=== PATIENT | male | born 1955 | race Caucasian/White ===

== ENCOUNTER 2016-09-19 18:13 | Inpatient (IN) ==
[2016-09-19] MEDS ORDERED: Pantoprazole 40 MG VIAL IVP ONE (18:15)
[2016-09-19 18:37] LABS: Basophils % 0.6 %; Eosinophils # 0.3 K/mcL (0.0-0.6); Eosinophils % 5.9 %; Hematocrit 25.2 % (37.5-50.1); Hemoglobin 8.2 g/dL (12.9-16.9); Immature Granulocytes % 4.4 % (0-4); Immature Platelets 25.2 % (1.1-6.1); Lymphocytes # 2.2 K/mcL (0.6-4.6); Lymphocytes % 47.3 %; Mean Corpuscular HGB Conc 32.5 g/dL (31.6-35.5); Mean Corpuscular Hemoglobin 31.8 pg (28.0-33.3); Mean Corpuscular Volume 97.7 fL (83.0-100.0); Monocytes # 0.5 K/mcL (0.0-1.3); Monocytes % 10.5 %; Neutrophils # 1.5 K/mcL (1.6-8.9); Nucleated Red Blood Cells 1.5 /100 WBC (0); Platelet Count 132 K/mcL (140-400); Red Blood Count 2.58 M/mcL (4.19-5.50); Red Cell Distribution Width 20.5 % (11.5-14.5); Segmented Neutrophils % 31.3 %
[2016-09-19 18:39] LABS: INR 1.3; Prothrombin Time 13.9 Seconds (9.4-12.1)
[2016-09-19 18:41] LABS: Activated Partial Thrombo Time 26.7 Seconds (26.0-36.0)
[2016-09-19 18:50] LABS: % Iron Saturation 49 % (20-55); Iron 132 mcg/dL (65-175); Transferrin 194 mg/dL (174-364)
[2016-09-19 18:51] LABS: Calcium 8.6 mg/dL (8.6-10.8); Magnesium 1.7 mg/dL (1.6-2.6); Potassium 4.1 mEq/L (3.5-4.5)
[2016-09-19] MEDS ORDERED: Ondansetron 4 MG/2 ML VIAL IVP ONE (19:04)
[2016-09-19] MEDS ORDERED: *HR* HYDROmorphone (PF) 1 MG/ML SYRINGE IVP ONE (19:04)
[2016-09-19 19:06] LABS: Anisocytosis 1+ (Not Present); Large Platelets Present (Not Present); Platelet Estimate Normal (Normal)
--- NOTE | 2016-09-19 19:10 | Emergency Department Note ---
Disposition Clinical Impression: Generalized weakness Anemia Qualifiers: Anemia type: unspecified type Qualified Code(s): D64.9 - Anemia, unspecified Disposition: Admitted As Inpatient Referrals: Luis Miguel,Vasiliy Ramirez MD [Primary Care Provider] - Forms: ED Satisfaction Letter Weakness HPI - General Chief complaint: ED Recheck/Abnormal Lab/Rx Stated complaint: Anemia, Sent by PCP Source: patient Limitations: no limitations Nursing Notes Reviewed: Yes Vital Signs Reviewed: Yes - History of Present Illness Pt Subjective Complaint: generalized weakness/fatigue Onset (ago): week(s) (3) Duration: constant, gradually worsening Location: generalized Pain Severity: moderate Pain Scale: 10 Improves with: none Worsens with: none Associated symptoms: Reports: headaches. Denies: chest pain, confusion, dark stools, diaphoresis, fever/chills, nausea/vomiting, syncope - Related Data Allergies Allergy/AdvReac Type Severity Reaction Status Date / Time ketorolac [From Toradol] Allergy Hives Verified 09/19/16 19:07 All systems ED: reviewed and negative except as stated. Constitutional: Reports: weakness. Denies: fever, chills Eyes: Denies: vision change Cardiovascular: Denies: chest pain Gastrointestinal: Denies: abdominal pain, nausea, vomiting Past Medical History - Past Medical History Source: patient, obtained from family, nursing notes reviewed Medical history: Reports: atrial fibrillation, hypertension Psychiatric history: Reports: anxiety, depression - Social History Smoking Status: Former smoker Smokeless Tobacco Status: No Alcohol use: Reports: none Drug use: Reports: none Physical Exam - General Limitations: no limitations General appearance: alert - Head Head exam: atraumatic, normocephalic, normal inspection - Eye Eye exam: Present: other (pale conjunctivae) - ENT ENT exam: normal exam, normal oropharynx, mucous membranes moist - Neck Neck exam: Present: normal inspection, full ROM, trachea midline - Back Exam Back exam: Present: normal inspection, full ROM. Absent: tenderness - Neurological Exam Neurological exam: Present: alert, oriented X3 - Psychiatric Psychiatric exam: Present: normal affect, normal mood - Skin Skin exam: Present: pallor, other (left arm small pupuric rash) Course Vital Signs Temperature 98.2 F 09/19/16 18:15 Pulse Rate 65 09/19/16 18:15 Respiratory Rate 16 09/19/16 18:15 Blood Pressure 106/54 09/19/16 18:15 O2 Sat by Pulse Oximetry 94 09/19/16 18:15 Temperature 98.2 F 09/19/16 18:15 Pulse Rate 65 09/19/16 18:15 Respiratory Rate 16 09/19/16 18:15 Blood Pressure 106/54 09/19/16 18:15 O2 Sat by Pulse Oximetry 94 09/19/16 18:15 Oxygen Delivery Oxygen Delivery Room Air Weakness - Differential Diagnosis Differential Diagnosis: Likely: anemia, hypoglycemia, sepsis/infection, dehydration, metabolic, thyroid/endocrine disorder - Medical Records Medical records reviewed: Yes I reviewed the patient's medical records. - Lab Data Lab results reviewed: Yes I reviewed the patient's lab results. Result diagrams: 09/19/16 18:27 09/19/16 18:27 Lab Results 09/19/16 09/19/16 09/19/16 Range/Units 18:27 18:27 18:27 WBC 4.7 (4.3-11.1) K/mcL RBC 2.58 L (4.19-5.50) M/mcL Hgb 8.2 L (12.9-16.9) g/dL Hct 25.2 L (37.5-50.1) % MCV 97.7 (83.0-100.0) fL MCH 31.8 (28.0-33.3) pg MCHC 32.5 (31.6-35.5) g/dL RDW 20.5 H (11.5-14.5) % Plt Count 132 L (140-400) K/mcL MPV TNP Immature Gran % 4.4 H (0-4) % Seg Neutrophils % 31.3 % Lymphocytes % 47.3 % Monocytes % 10.5 % Eosinophils % 5.9 % Basophils % 0.6 % Neutrophils # 1.5 L (1.6-8.9) K/mcL Lymphocytes # 2.2 (0.6-4.6) K/mcL Monocytes # 0.5 (0.0-1.3) K/mcL Eosinophils # 0.3 (0.0-0.6) K/mcL Basophils # 0.0 (0.0-0.2) K/mcL Nucleated RBCs/100 WBC 1.5 H (0) /100 WBC Platelet Estimate Normal (Normal) Large Platelets Present A (Not Present) Immature Plt Fraction 25.2 H (1.1-6.1) % Anisocytosis 1+ A (Not Present) PT 13.9 H (9.4-12.1) Seconds INR 1.3 APTT 26.7 (26.0-36.0) Seconds Sodium 138 (136-145) mEq/L Potassium 4.1 (3.5-4.5) mEq/L Chloride 107 (98-109) mEq/L Carbon Dioxide 24 (19-29) mEq/L BUN 19 (8-26) mg/dL Creatinine 1.91 H (0.72-1.25) mg/dL Est GFR ( Amer) 43 L (> 60) Est GFR (Non-Af Amer) 36 L (> 60) BUN/Creatinine Ratio 10 (6-26) Glucose 123 H (70-99) mg/dL Calculated Osmolality 290 (280-300) Calcium 8.6 (8.6-10.8) mg/dL Magnesium 1.7 (1.6-2.6) mg/dL Iron (65-175) mcg/dL % Saturation (20-55) % Transferrin (174-364) mg/dL Troponin I (0-0.03) ng/mL Lipase 15 (8-78) Units/L Blood Type Antibody Screen 09/19/16 09/19/16 09/19/16 Range/Units 18:27 18:27 18:27 WBC (4.3-11.1) K/mcL RBC (4.19-5.50) M/mcL Hgb (12.9-16.9) g/dL Hct (37.5-50.1) % MCV (83.0-100.0) fL MCH (28.0-33.3) pg MCHC (31.6-35.5) g/dL RDW (11.5-14.5) % Plt Count (140-400) K/mcL MPV Immature Gran % (0-4) % Seg Neutrophils % % Lymphocytes % % Monocytes % % Eosinophils % % Basophils % % Neutrophils # (1.6-8.9) K/mcL Lymphocytes # (0.6-4.6) K/mcL Monocytes # (0.0-1.3) K/mcL Eosinophils # (0.0-0.6) K/mcL Basophils # (0.0-0.2) K/mcL Nucleated RBCs/100 WBC (0) /100 WBC Platelet Estimate (Normal) Large Platelets (Not Present) Immature Plt Fraction (1.1-6.1) % Anisocytosis (Not Present) PT (9.4-12.1) Seconds INR APTT (26.0-36.0) Seconds Sodium (136-145) mEq/L Potassium (3.5-4.5) mEq/L Chloride (98-109) mEq/L Carbon Dioxide (19-29) mEq/L BUN (8-26) mg/dL Creatinine (0.72-1.25) mg/dL Est GFR ( Amer) (> 60) Est GFR (Non-Af Amer) (> 60) BUN/Creatinine Ratio (6-26) Glucose (70-99) mg/dL Calculated Osmolality (280-300) Calcium (8.6-10.8) mg/dL Magnesium (1.6-2.6) mg/dL Iron 132 (65-175) mcg/dL % Saturation 49 (20-55) % Transferrin 194 (174-364) mg/dL Troponin I 0.01 (0-0.03) ng/mL Lipase (8-78) Units/L Blood Type A POSITIVE Antibody Screen NEGATIVE - Radiology Data Radiology results reviewed: Yes I reviewed the patient's radiology results. - EKG Data EKG attestation: Yes I reviewed and interpreted this EKG. EKG shows normal: sinus rhythm Rate: normal Rhythm: arrhythmia (sinus) Interpretation: no acute changes
[2016-09-19 19:32] LABS: Thyroid Stimulating Hormone 1.772 mcIU/mL (0.350-4.840)
[2016-09-19] MEDS ORDERED: Naloxone 0.4 MG/ML INJ IVP PRN (22:33)
[2016-09-19] MEDS ORDERED: Ondansetron 4 MG/2 ML VIAL IVP PRN (22:37)
[2016-09-19] MEDS ORDERED: 0.9 % Sodium Chloride 1,000 ML IVC SCH (22:45)
--- NOTE | 2016-09-19 23:03 | Internal Med History&Physical ---
Date of Encounter: 09/19/16 Time of Encounter: 21:30 Assessment and Plan (1) Generalized weakness Current visit: Yes Status: Acute 1 patient has been experiencing weakness past couple weeks. lab work revealed some anemia as well as ALTON. Patient states he has been experiencing fatigue and nausea and has had poor oral intake. We will give IV fluids 2 fall PRECAUTIONS 3 anemia workup (2) ALTON (acute kidney injury) Current visit: Yes Status: Acute 1 respiratory creatinine is 1.9 on transfer his baseline. Patient has had poor oral intake he has been taking NSAIDs as well as Antoni. His systolic blood pressure was in the 90s on presentation I suspect this is prerenal. We will give IV fluids overnight hold lisinopril 2 no NSAIDS 3 avoid nephrotoxins 4 monitor intake and output daily weights 5 obtain urinalysis (3) HTN (hypertension) Current visit: No Status: Chronic 1 presently he is hypotensive we will hold medications for now and resume once back to baseline Qualifiers: Hypertension type: essential hypertension Qualified Code(s): I10 - Essential (primary) hypertension (4) Afib Current visit: Yes Status: Acute 1 presently he is in normal sinus rhythm he is on aspirin. We will hold for now due to thrombocytopenia Qualifiers: Atrial fibrillation type: paroxysmal Qualified Code(s): I48.0 - Paroxysmal atrial fibrillation (5) DVT prophylaxis Current visit: Yes Status: Acute SCDs (6) Anemia Current visit: Yes Status: Acute 1 hemoglobin is 8.2 and was 9 on Friday according the patient. He denies any melena hematochezia hematemesis. She is not on any anticoagulation we will hold aspirin for now. Iron studies are within normal limits We will continue to monitor CBC- transfuse as needed 2 we will obtain stool for occult blood 3 folate B12 4 consult hematology as needed 5 consult GI as needed Qualifiers: Anemia type: unspecified type Qualified Code(s): D64.9 - Anemia, unspecified (7) Thrombocytopenia Current visit: Yes Status: Acute 1 presently platelets are 132, unsure of baseline no s/sx of bleeding we will continue to monitor transfuse as needed . 2 consult hematology as needed 3 Internal Medicine - H&P: HPI Chief complaint: weakness Admitted From: Emergency Dept Plans for Post Hospital Care: Home History of present illness: Mr. Glez is a 61 year old male past medical history of paroxysmal atrial fibrillation hypertension anxiety depression and osteoarthritis. According to the patient he has been experiencing fatigue for approximately year however, the past month he has been very weak fatigued. He states that he is unable to ambulate without assistance. He has had approximately 10 pound weight loss in the last month he denies any fevers or chills he does have some nausea as well as headaches. he became concerned with his symptoms as he has had approximately 4-5 tick bites over the past 3 months, went to his primary care physician to be checked for Lyme disease. Blood work was drawn on Friday he get results back today was notified by primary care to go to the emergency room due to anemia. Patient denies any melena hematochezia or hematemesis. He developed a headache yesterday which continues until today associated symptoms of blurred vision nausea and nosebleed. He also admits to swollen and achy joints which she attributes to his arthritis. He has not had much of an appetite and has poor oral intake. He notes he has not been urinating very much. He presented to the ER with the above complaints. According to ER records lab work was drawn which did reveal hemoglobin 8.2 it was 9 on Friday platelets of 132 he had large and immature platelets present as well. Chemistry showed elevated creatinine at 1.9 on GFR was 43 PT was 13.9 INR 1.[address] of his head was obtained which was negative for any intracranial abnormality. He has been admitted for further workup and evaluation. Presently the patient complains of a [place]A, describe as aching encompassing head, photophobia. He is alert and appropriate following simple commands Cranial nerves II through XII are intact. Follows commands. Lungs sounds are clear heart sounds regular S1-S2 with no rubs clicks gallops murmurs. No lower extremity Edema abdomen soft nontender. No lymphadenopathy noted. Presently he is hypertensive with systolic in the 90s EKG sinus bradycardia. I reviewed this case with Dr Dc who agrees with plan Past Med Surg Social Fam HX - Past Medical History Medical history: atrial fibrillation, DVT, hypertension Psychiatric history: anxiety, depression - Social History Smoking Status: Former smoker Smokeless Tobacco Status: No Alcohol use: none Drug use: none - Family History Mother Age at : 77 Hx Family Cancer: Yes (lung CA) Father Age at : 90 Hx Family Cardiac Disorders: Yes ([place]) Sister Age at : 50 Hx Family Respiratory Disorders: Yes (asthma) Internal Medicine - H&P: Meds Albuterol Sulfate [Albuterol Inhaler] 1 - 2 puff IH Q4-6H PRN 09/19/16 [History] Aspirin [Lo-Dose Aspirin EC] 81 mg PO DAILY 09/19/16 [History] Cyanocobalamin (B-12) [Vitamin B12] 1,000 mcg IM QMONTH 09/19/16 [History] Duloxetine HCl [Cymbalta] 60 mg PO DAILY 09/19/16 [History] Ezetimibe [Ezetimibe] 10 mg PO DAILY 09/19/16 [History] Lansoprazole [Prevacid] 30 mg PO DAILY 09/19/16 [History] Lisinopril [Zestril] 5 mg PO DAILY 09/19/16 [History] Meth/Meblue/Sod Phos/Psal/Hyos [Uribel Capsule] 1 each PO DAILY 09/19/16 [ History] Naproxen [Naprosyn] 500 mg PO BID 09/19/16 [History] Oxycodone HCl [Oxycontin] 60 mg PO BID 09/19/16 [History] Oxycodone HCl/Acetaminophen [Percocet 5-325 mg Tablet] 1 each PO Q6H PRN [History] Pregabalin [Lyrica] 100 mg PO TID 09/19/16 [History] Tamsulosin [Flomax] 0.8 mg PO DAILY 09/19/16 [History] Allergies ketorolac [From Toradol] Allergy (Verified 09/19/16 19:07) Hives All Systems PM: A 10-system review of systems was performed and is negative for pertinent findings except as documented above in the HPI. - Constitutional Constitutional: fatigue, weakness, weight loss, no chills, no fever(s), no night sweats - EENT Eyes: blurry vision Nose, mouth and throat: epistaxis, no dysphagia, no nasal discharge, no neck pain, no sore throat - Cardiovascular Cardiovascular ROS IM: edema, no chest pain, no diaphoresis, no dyspnea, no lightheadedness, no palpitations, no syncope - Respiratory Respiratory: no cough, no dyspnea, no wheezing, no excessive phlegm production - Gastrointestinal Gastrointestinal: no abdominal pain, no diarrhea, no hematemesis, no hematochezia, no melena, no nausea, no vomiting - Musculoskeletal Musculoskeletal ROS IM: arthralgias - Integumentary Integumentary IM: no rash, no unusual bruising - Neurological Neurological ROS: no confusion, no convulsions, no focal weakness, no numbness, no tingling, no tremor(s) - Hematologic/Lymphatic Hematologic/Lymphatic: no easy bruising - Constitutional Vitals: Temp Pulse Resp BP Pulse Ox 98.2 F 64 16 109/57 96 09/19/16 18:15 09/19/16 20:41 09/19/16 21:17 09/19/16 21:17 09/19/16 20:41 General appearance: Present: A&O X 3, answers questions appropriately - Head Head exam: Present: atraumatic, normocephalic - Eye Eye exam: Present: PERRL, conjuntiva pink, sclera anicteric Pupils: Present: PERRL - Neck Neck exam general surgery: Present: supple, trachea midline. Absent: lymphadenopathy - Respiratory Respiratory exam: Present: CTAB. Absent: accessory muscle use, rales, rhonchi, wheezes - Cardiovascular Cardiovascular exam: Present: RRR, +S1, +S2. Absent: diastolic murmur, gallop, rubs, systolic murmur - GI/Abdominal GI/Abdominal exam: Present: normal bowel sounds, soft, no peritoneal signs. Absent: distended, tenderness - Extremities Exam Extremities exam: Present: warm, radial pulses palpable and symetrical. Absent : calf tenderness, cyanotic, pedal edema - Neurological Exam Neurological exam: Present: CN II-XII intact, oriented X3, no focal deficits. Absent: pronater drift, facial droop, speech deficit - Skin Skin exam: Present: dry, intact Internal Med - H&P Results - Labs CBC & Chem 7: 09/19/16 18:27 09/19/16 18:27 - EKG Data EKG shows normal: sinus rhythm Rate: bradycardia - Diagnostic Studies Other Images Additional comments: Head CT 09/19/16 19:20 IMPRESSION: No acute intracranial abnormality. D/ / Delmer Mckinney MD / Delmer Mckinney MD Interpreting Provider: Delmer Mckinney MD
[2016-09-19] MEDS ORDERED: *HR* OxyCODONE/APAP 5/325 TABLET PO PRN (23:13)
[2016-09-19] MEDS: 0.9 % Sodium Chloride 1,000 ML IVC SCH (23:36)
[2016-09-20] MEDS ORDERED: Acetaminophen 325 MG TABLET PO PRN (00:04)
[2016-09-20 04:40] LABS: Bilirubin,Urine Negative (Negative); Blood,Urine Negative (Negative); Clarity,Urine Clear (Clear); Glucose,Urine (UA) Normal (Normal); Ketones,Urine Negative (Negative); Leukocyte Esterase,Urine Negative (Negative); Nitrite,Urine Negative (Negative); Protein,Urine Negative (Neg-Trace); Specific Gravity,Urine 1.007 (1.010-1.025); Urobilinogen,Urine Normal (Normal)
[2016-09-20 06:13] LABS: Basophils % 0.5 %; Mean Corpuscular Volume 100.4 fL (83.0-100.0); Nucleated Red Blood Cells 0.8 /100 WBC (0)
[2016-09-20 06:14] LABS: Eosinophils # 0.3 K/mcL (0.0-0.6); Eosinophils % 6.3 %; Hematocrit 24.7 % (37.5-50.1); Hemoglobin 7.7 g/dL (12.9-16.9); Immature Platelets 24.1 % (1.1-6.1); Lymphocytes # 2.1 K/mcL (0.6-4.6); Mean Corpuscular HGB Conc 31.2 g/dL (31.6-35.5); Mean Corpuscular Hemoglobin 31.3 pg (28.0-33.3); Monocytes # 0.4 K/mcL (0.0-1.3); Monocytes % 10.2 %; Platelet Count 115 K/mcL (140-400); Red Blood Count 2.46 M/mcL (4.19-5.50); Red Cell Distribution Width 20.3 % (11.5-14.5); Segmented Neutrophils % 24.9 %
[2016-09-20 06:28] LABS: Calcium 8.3 mg/dL (8.6-10.8); Potassium 4.3 mEq/L (3.5-4.5)
[2016-09-20] MEDS ORDERED: Pantoprazole 40 MG VIAL IVP SCH (06:30)
[2016-09-20 06:54] LABS: Platelet Estimate Decreased (Normal); Reactive Lymphocytes Present (Not Present)
[2016-09-20 06:55] LABS: Anisocytosis 1+ (Not Present); Large Platelets Present (Not Present); Macrocytosis Present (Not Present)
[2016-09-20] MEDS: Pregabalin 50 MG CAPSULE PO SCH ×3 (08:37→20:17)
[2016-09-20] MEDS: 0.9 % Sodium Chloride 1,000 ML IVC SCH (08:38)
[2016-09-20] MEDS ORDERED: *HR* OxyCODONE ER (12 HR) 10 MG TABLET PO SCH (09:00)
[2016-09-20] MEDS ORDERED: *HR* OxyCODONE ER (12 HR) 20 MG TABLET PO SCH (09:00)
[2016-09-20] MEDS ORDERED: *HR* OxyCODONE/APAP 5/325 TABLET PO PRN (11:40)
[2016-09-20 11:58] LABS: Folate 6.1 ng/mL (7.0-31.4)
--- NOTE | 2016-09-20 13:06 | Electrocardiograph Report ---
[place] [id number] Test Date: 2016-09-19 Pat Name: Nicholas Glez Department: 102 Room: 3A Gender: M Enrollment Representative: Ekp : 1955 Requested By: Kenneth Nazario Order Number: [id number] Reading MD: Bear Ling MD Measurements Intervals [place] Rate: 60 P: 48 OH: 177 QRS: 15 QRSD: 84 T: 23 QT: 404 QTc: 404 Interpretive Statements SINUS RHYTHM WITH SINUS ARRHYTHMIA Electronically Signed On 09-20-2016 13:05:02 EDT by Bear Ling MD
[2016-09-20] MEDS ORDERED: 0.9 % Sodium Chloride 250 ML ONE ×2 (13:41→18:06)
[2016-09-20 13:47] LABS: Amphetamine Screen,Urine Negative ng/mL (Cutoff=1000); Barbiturate Screen,Urine Negative ng/mL (Cutoff=200); Benzodiazepines Screen,Urine Positive ng/mL (Cutoff=200); Cannabinoid Screen,Urine Negative ng/mL (Cutoff = 50); Cocaine Screen,Urine Negative ng/mL (Cutoff= 300); Opiate Screen,Urine Positive ng/mL (Cutoff=300); Phencyclidine Screen,Urine Negative ng/mL (Cutoff=25)
--- NOTE | 2016-09-20 15:40 | Internal Med Progress Note ---
Date of Encounter: 09/20/16 Time of Encounter: 11:45 - Assessment and plan (1) ALTON (acute kidney injury) Current Visit: Yes Status: Acute Assessment and plan: Discussed with patient's primary care provider Dr.Alan Bolanos; patient's baseline serum creatinine is around 1.3 and patient presented with creatinine of 1.9, improved to 1.5 today. Likely etiology is prerenal-dehydration, anemia, hypotension along with use of MARILEE inhibitor/NSAIDs. Continue IV hydration and avoid new nephrotoxic agents. Monitor serum creatinine closely. Hold lisinopril and NSAIDs for now. (2) Anemia Current Visit: Yes Status: Acute Assessment and plan: Patient is noted to have anemia of uncertain etiology. His baseline hemoglobin is noted to be around 13 and patient presented with 8.2, noted to be 7.7 today. Iron profile is within normal limits. Serum vitamin B12 is slightly higher than normal and folic acid level is noted to be low. Start folic acid supplementation. Send stool for occult blood testing. Transfuse 2 units PRBC today due to symptoms of exertional dyspnea and fatigue. Given his history of weight loss and new anemia, will consult surgery for possible colonoscopy. Qualifiers: Anemia type: folate deficiency Folate deficiency anemia type: unspecified folate deficiency Qualified Code(s): D52.9 - Folate deficiency anemia, unspecified (3) Generalized weakness Current Visit: Yes Status: Chronic Assessment and plan: Likely due to anemia. Physical and occupation therapy evaluation. Supportive care. (4) Chronic kidney disease Current Visit: Yes Status: Chronic Qualifiers: Chronic kidney disease stage: stage 3 (moderate) Qualified Code(s): N18.3 - Chronic kidney disease, stage 3 (moderate) (5) HTN (hypertension) Current Visit: Yes Status: Chronic Assessment and plan: Noted to have low normal blood pressure at admission. Continue to hold lisinopril for now and monitor blood pressure closely. Qualifiers: Hypertension type: essential hypertension Qualified Code(s): I10 - Essential (primary) hypertension (6) Afib Current Visit: Yes Status: Chronic Assessment and plan: Currently rate controlled. Not noted to be on chronic anticoagulation or rate controlling agents. Qualifiers: Atrial fibrillation type: paroxysmal Qualified Code(s): I48.0 - Paroxysmal atrial fibrillation - Subjective Interval history: Reports intermittent shortness of breath along with generalized weakness and exertional dyspnea, going on for a few weeks to months. No hematemesis, melena/ hematochezia, hemoptysis or hematuria reported. - Constitutional Vitals: Temp Pulse Resp BP Pulse Ox 97.7 F 66 16 117/71 94 09/20/16 15:15 09/20/16 15:15 09/20/16 15:15 09/20/16 15:15 09/20/16 15:15 General appearance: Present: A&O X 3, answers questions appropriately - Respiratory Respiratory exam: Present: CTAB. Absent: accessory muscle use, rales, rhonchi, wheezes - Cardiovascular Cardiovascular exam: Present: RRR, +S1, +S2. Absent: diastolic murmur, gallop, rubs, systolic murmur - GI/Abdominal GI/Abdominal exam: Present: normal bowel sounds, soft (Obese), no peritoneal signs. Absent: distended, tenderness - Extremities Exam Extremities exam: Present: full ROM, warm, radial pulses palpable and symetrical. Absent: calf tenderness, cyanotic, pedal edema - Neurological Exam Neurological exam: Present: CN II-XII intact, oriented X3, no focal deficits. Absent: pronater drift, facial droop, speech deficit - Skin Skin exam: Present: dry, intact, pallor Internal Medicine: Result - Labs CBC & Chem 7: 09/20/16 05:53 09/20/16 05:53 - ABG Interpretation ABG results: PT/INR, D-dimer PT 13.9 Seconds (9.4-12.1) H 09/19/16 18:27 Consult Discharge Plan - Plan Referrals: Vasiliy Bolanos MD [Primary Care Provider] -
[2016-09-20] MEDS: Folic Acid 1 MG TABLET PO SCH (15:51)
[2016-09-20] MEDS: *HR* OxyCODONE ER (12 HR) 20 MG TABLET PO SCH (20:17)
[2016-09-20] MEDS: Sennosides/Docusate Sodium TABLET PO SCH (20:18)
[2016-09-21 05:39] LABS: Basophils % 0.9 %; Eosinophils # 0.3 K/mcL (0.0-0.6); Eosinophils % 5.9 %; Hematocrit 30.8 % (37.5-50.1); Hemoglobin 9.9 g/dL (12.9-16.9); Immature Platelets 27.4 % (1.1-6.1); Lymphocytes # 2.2 K/mcL (0.6-4.6); Lymphocytes % 49.9 %; Mean Corpuscular HGB Conc 32.1 g/dL (31.6-35.5); Mean Corpuscular Volume 93.3 fL (83.0-100.0); Monocytes # 0.4 K/mcL (0.0-1.3); Monocytes % 8.2 %; Neutrophils # 1.4 K/mcL (1.6-8.9); Nucleated Red Blood Cells 0.9 /100 WBC (0); Platelet Count 113 K/mcL (140-400); Red Cell Distribution Width 21.6 % (11.5-14.5); Segmented Neutrophils % 32.1 %
[2016-09-21 05:40] LABS: BUN/Creatinine Ratio 14 (6-26); Blood Urea Nitrogen 18 mg/dL (8-26); Calcium 8.4 mg/dL (8.6-10.8); Carbon Dioxide 26 mEq/L (19-29); Chloride 108 mEq/L (98-109); Glucose 86 mg/dL (70-99); Osmolality,Calculated 289 (280-300); Potassium 4.3 mEq/L (3.5-4.5); Sodium 139 mEq/L (136-145); eGFR For African Americans > 60 (> 60); eGFR For Non-African Americans 58 (> 60)
[2016-09-21 06:47] LABS: Anisocytosis 2+ (Not Present); Platelet Clumps Few (Not Present); Platelet Estimate Slight Decrease (Normal)
[2016-09-21] MEDS: *HR* OxyCODONE ER (12 HR) 20 MG TABLET PO SCH ×2 (09:49→20:29)
[2016-09-21] MEDS: Sennosides/Docusate Sodium TABLET PO SCH (09:52)
[2016-09-21] MEDS: Folic Acid 1 MG TABLET PO SCH (09:52)
[2016-09-21] MEDS: Pregabalin 50 MG CAPSULE PO SCH ×3 (09:54→20:29)
[2016-09-21] MEDS ORDERED: SODIUM CHLORIDE/NAHCO3/KCL/PEG 4,000 ML SOLN.RECON PO ONE (12:30)
--- NOTE | 2016-09-21 12:41 | Internal Med Progress Note ---
Date of Encounter: 09/21/16 Time of Encounter: 12:39 - Assessment and plan (1) ALTON (acute kidney injury) Current Visit: Yes Status: Acute Assessment and plan: Likely etiology is prerenal-dehydration, anemia, hypotension along with use of MARILEE inhibitor/NSAIDs. Im[proved with IV hydration, noted to be 1.26 today. Monitor serum creatinine closely. Hold lisinopril and NSAIDs for now. (2) Anemia Current Visit: Yes Status: Acute Assessment and plan: His baseline hemoglobin is noted to be around 13 and patient presented with 7.7 , received PRBC transfusion and Hb improved to 9.9 today; Iron profile is within normal limits. Serum vitamin B12 is slightly higher than normal and folic acid level is noted to be low. Started folic acid supplementation. Pending stool for occult blood testing. Case d/w Hematology and recommend to r/ o GI bleed, full consult to follow. Consulted Surgery, plan for EGD and Colonoscopy in am; Qualifiers: Anemia type: folate deficiency Folate deficiency anemia type: unspecified folate deficiency Qualified Code(s): D52.9 - Folate deficiency anemia, unspecified (3) Generalized weakness Current Visit: Yes Status: Chronic Assessment and plan: Likely due to anemia. Physical and occupation therapy evaluation noted- recommend outpatient therapy. Supportive care. (4) Chronic kidney disease Current Visit: Yes Status: Chronic Qualifiers: Chronic kidney disease stage: stage 3 (moderate) Qualified Code(s): N18.3 - Chronic kidney disease, stage 3 (moderate) (5) HTN (hypertension) Current Visit: Yes Status: Chronic Qualifiers: Hypertension type: essential hypertension Qualified Code(s): I10 - Essential (primary) hypertension (6) Afib Current Visit: Yes Status: Chronic Qualifiers: Atrial fibrillation type: paroxysmal Qualified Code(s): I48.0 - Paroxysmal atrial fibrillation - Subjective Interval history: Reports feeling better; improved fatigue and weakness; no chest or abdominal pain or dyspnea; - Constitutional Vitals: Temp Pulse Resp BP Pulse Ox 97.6 F 57 16 129/67 96 09/21/16 11:53 09/21/16 11:53 09/21/16 11:53 09/21/16 11:53 09/21/16 11:53 General appearance: Present: A&O X 3, answers questions appropriately - Respiratory Respiratory exam: Present: CTAB. Absent: accessory muscle use, rales, rhonchi, wheezes - Cardiovascular Cardiovascular exam: Present: RRR, +S1, +S2. Absent: diastolic murmur, gallop, rubs, systolic murmur - GI/Abdominal GI/Abdominal exam: Present: normal bowel sounds, soft, no peritoneal signs. Absent: distended, tenderness Internal Medicine: Result - Labs CBC & Chem 7: 09/21/16 05:01 09/21/16 05:01 Labs: Short CBC 09/21/16 Range/Units 05:01 WBC 4.4 (4.3-11.1) K/mcL Hgb 9.9 L D (12.9-16.9) g/dL Hct 30.8 L (37.5-50.1) % Plt Count 113 L (140-400) K/mcL Neutrophils # 1.4 L (1.6-8.9) K/mcL BMP 09/21/16 05:01 Sodium 139 Potassium 4.3 Chloride 108 Carbon Dioxide 26 BUN 18 Creatinine 1.26 H Glucose 86 Calcium 8.4 L - ABG Interpretation ABG results: PT/INR, D-dimer PT 13.9 Seconds (9.4-12.1) H 09/19/16 18:27 Consult Discharge Plan - Plan Referrals: Luis Miguel,Vasiliy Ramriez MD [Primary Care Provider] -
[2016-09-21 12:43] LABS: Lactate Dehydrogenase 199 Units/L (159-327)
[2016-09-21 12:45] LABS: Immature Reticulocyte % 19.8 % (11.0-38.0); Retculocyte # 0.06 M/mcL (0.05-0.10); Reticulocyte % 1.8 % (1.6-2.8)
[2016-09-22 05:09] LABS: Eosinophils # 0.2 K/mcL (0.0-0.6); Hemoglobin 10.3 g/dL (12.9-16.9); Immature Platelets 29.7 % (1.1-6.1); Mean Corpuscular HGB Conc 33.2 g/dL (31.6-35.5); Mean Corpuscular Volume 93.4 fL (83.0-100.0); Nucleated Red Blood Cells 0.5 /100 WBC (0); Platelet Count 106 K/mcL (140-400); Red Blood Count 3.32 M/mcL (4.19-5.50)
[2016-09-22 05:25] LABS: BUN/Creatinine Ratio 13 (6-26); Blood Urea Nitrogen 15 mg/dL (8-26); Calcium 8.4 mg/dL (8.6-10.8); Carbon Dioxide 25 mEq/L (19-29); Chloride 108 mEq/L (98-109); Glucose 80 mg/dL (70-99); Osmolality,Calculated 288 (280-300); Potassium 4.2 mEq/L (3.5-4.5); Sodium 139 mEq/L (136-145); eGFR For African Americans > 60 (> 60); eGFR For Non-African Americans > 60 (> 60)
[2016-09-22 05:55] LABS: Anisocytosis 2+ (Not Present); Basophils # 0.1 K/mcL (0.0-0.2); Lymphocytes # 2.5 K/mcL (0.6-4.6); Monocytes # 0.2 K/mcL (0.0-1.3); Neutrophils # 1.2 K/mcL (1.6-8.9); Platelet Estimate Slight Decrease (Normal)
[2016-09-22] MEDS ORDERED: *HR* Midazolam HCl 5 MG/5 ML VIAL IVP ONE (08:38)
[2016-09-22] MEDS ORDERED: *HR* FentaNYL (PF) 100 MCG/2 ML VIAL ONE (08:39)
[2016-09-22] MEDS ORDERED: *HR* FentaNYL (PF) 100 MCG/2 ML VIAL IVP PRN (08:54)
[2016-09-22] MEDS ORDERED: Tetracaine/Benzocaine/Butamben 200MG/SPRAY (100SPY/BOT) MM ONE (08:54)
--- NOTE | 2016-09-22 08:57 | Pre-Sedation Evaluation ---
Pre-sedation evaluation - Pre-sedation checklist Date of procedure: 09/22/16 Procedure: EGD colonoscopy Recent Vitals: Last Vital Signs Temp 97.9 F 09/22/16 08:49 Pulse 63 09/22/16 08:49 Resp 18 09/22/16 08:49 BP 150/90 09/22/16 08:49 Pulse Ox 92 09/22/16 08:49 H&P (including ROS) documented in medical record: Yes Previous reaction to sedatives/anesthetics: No Dietary Status: NPO after Midnight Dentition: No loose teeth or bridges Possible difficult airway: No ASA Classification *see protocol: CLASS III-Severe systemic disease Plan of Care: Pt appropriate candidate for procedure/moderate/conscious sedation , Risks/benefits of procedure/sedation discussed w/ patient/family
[2016-09-22] MEDS: *HR* Midazolam HCl 5 MG/5 ML VIAL IVP PRN ×3 (09:00→09:13)
[2016-09-22] MEDS ORDERED: 0.9 % Sodium Chloride 1,000 ML IVC SCH (09:00)
--- NOTE | 2016-09-22 09:29 | Event Note ---
Date of Encounter: 09/22/16 Time of Encounter: 09:25 The patient underwent uneventful upper and lower endoscopy examinations. The esophagus stomach and duodenum were normal. The entire mucosal surface of the colon was normal. There was no evidence of polyp cancer tumor or bleeding. There is no evidence of diverticulosis. Ten-year follow-up screening colonoscopy as recommended. No source of bleeding is identified.
[2016-09-22] MEDS: *HR* OxyCODONE ER (12 HR) 20 MG TABLET PO SCH (12:14)
[2016-09-22] MEDS: Pregabalin 50 MG CAPSULE PO SCH (12:16)
[2016-09-22] MEDS: Folic Acid 1 MG TABLET PO SCH (12:18)
--- NOTE | 2016-09-22 15:12 | Discharge Summary ---
Date of Encounter: 09/22/16 Time of Encounter: 15:09 - Discharge Diagnosis (1) ALTON (acute kidney injury) Priority: Primary Status: Resolved (2) Anemia Priority: Primary Status: Acute Qualifiers: Anemia type: folate deficiency Folate deficiency anemia type: unspecified folate deficiency Qualified Code(s): D52.9 - Folate deficiency anemia, unspecified (3) Generalized weakness Priority: Primary Status: Chronic (4) Chronic kidney disease Priority: Secondary Status: Chronic Qualifiers: Chronic kidney disease stage: stage 3 (moderate) Qualified Code(s): N18.3 - Chronic kidney disease, stage 3 (moderate) (5) HTN (hypertension) Priority: Secondary Status: Chronic Qualifiers: Hypertension type: essential hypertension Qualified Code(s): I10 - Essential (primary) hypertension (6) Afib Priority: Secondary Status: Chronic Qualifiers: Atrial fibrillation type: paroxysmal Qualified Code(s): I48.0 - Paroxysmal atrial fibrillation - Discharge Medications Prescriptions: Folic Acid 1 mg PO DAILY #30 tablet Home Medications: Albuterol Sulfate [Albuterol Inhaler] 1 - 2 puff IH Q4-6H PRN 09/19/16 [History] Aspirin [Lo-Dose Aspirin EC] 81 mg PO DAILY 09/19/16 [History] Cyanocobalamin (B-12) [Vitamin B12] 1,000 mcg IM QMONTH 09/19/16 [History] Duloxetine HCl [Cymbalta] 60 mg PO DAILY 09/19/16 [History] Ezetimibe 10 mg PO DAILY 09/19/16 [History] Lansoprazole [Prevacid] 30 mg PO DAILY 09/19/16 [History] Lisinopril [Zestril] 5 mg PO DAILY 09/19/16 [History] Meth/Meblue/Sod Phos/Psal/Hyos [Uribel Capsule] 1 each PO DAILY 09/19/16 [ History] Naproxen [Naprosyn] 500 mg PO BID 09/19/16 [History] Oxycodone HCl [Oxycontin] 60 mg PO BID 09/19/16 [History] Oxycodone HCl/Acetaminophen [Percocet 5-325 mg Tablet] 1 each PO Q6H PRN [History] Pregabalin [Lyrica] 100 mg PO TID 09/19/16 [History] Tamsulosin [Flomax] 0.8 mg PO DAILY 09/19/16 [History] Folic Acid 1 mg PO DAILY #30 tablet 09/22/16 [Rx] Allergies/Adverse Reactions: Allergies ketorolac [From Toradol] Allergy (Verified 09/19/16 19:07) Hives Date of admission: 09/20/16 10:28 Primary care physician: Vasiliy Bolanos MD Consults: 09/21/16 12:29 Consult to Oncology Hematology [CONS] Routine Consulting Provider: Brian Lim Reason for Consult: Acute anemia, thrombocytopenia Call Completed: Yes Consult to Surgery [CONS] Routine Consulting Provider: [facility] Reason for Consult: Acute symptomatic anemia, for EGD/Colonoscopy Call Completed: Yes Discharging clinician: Carmel Murphy Anticipated date of discharge: 09/22/16 - Patient Status Disposition: Home, Self-Care Condition: Good Functional capacity at discharge: independent ambulation Overall status at discharge: patient is progressing back to baseline - Discharge Instructions Instructions: Folic Acid (By mouth) Follow Up With: Vasiliy Bolanos MD [Primary Care Provider] - Additional Instructions: F/up with PCP in 1-2 weeks F/up with Hematology in 3-4 weeks - Diet and Activity Activity: resume usual activities as tolerated Diet: low fat, low cholesterol, low salt diet Hospital course: Mr. Glez is a 61 year old male with the above medical problems who was admitted with generalized weakness, exertional dyspnea and fatigue. He was noted to have acute anemia with hemoglobin as low as 7.7 while his baseline hemoglobin was noted to be around 13, per his PCP. He received 2 units PRBC transfusion after sending of iron profile, serum vitamin B12 and folate levels, with appropriate improvement in hemoglobin. He was also noted to have acute kidney injury on chronic kidney disease, which improved with IV hydration and serum creatinine came back to his baseline. Serum folate level was noted to be low and he was started on folate supplementation. Case was discussed with hematology, who recommended to rule out GI bleed as a cause for anemia. Surgery was consulted and patient underwent EGD and colonoscopy, which were noted to be normal with no evidence of active or remote bleeding. At this time, patient is medically stable for discharge with outpatient hematology follow-up. - Time Spent with Patient Total time spent providing and/or coordinating discharge services: Greater than 30 minutes (40 min) - Constitutional Vitals: Temp Pulse Resp BP Pulse Ox 97.5 F L 57 16 142/87 97 09/22/16 11:48 09/22/16 11:48 09/22/16 11:48 09/22/16 11:48 09/22/16 11:48 General appearance: Present: A&O X 3, answers questions appropriately - Respiratory Respiratory exam: Present: CTAB. Absent: accessory muscle use, rales, rhonchi, wheezes - Cardiovascular Cardiovascular exam: Present: RRR, +S1, +S2. Absent: diastolic murmur, gallop, rubs, systolic murmur
[2016-09-22 15:46] VITALS: BP 108/67
--- NOTE | 2016-09-22 15:47 | Oncology Inp Consult Note ---
Date of Encounter: 09/22/16 Time of Encounter: 15:26 - Data of Consult Patient: new to practice Consult date: 09/22/16 Requesting Physician: Carmel Murphy MD Primary Care Provider: Vasiliy Bolanos MD - Consult Narrative Reason for consult: Pancytopenia History of present illness: Mr. Glez is a 61 year old gentleman seen in consultation for unexplained anemia. He presented with unexplained, progressive generalized weakness and a CBC on admission showed significant decline in his hemoglobin down to 7.7. Hemoglobin was reportedly 13 recently per discussion with his PCP. He also had associated leukopenia and thrombocytopenia both of mild severity WBC 3.9, platelet count 115,000). Other related finding of admission was acute kidney injury of her mild severity with a creatinine of 1.9 which is subsequently normalized. He's had an extensive workup for his cytopenias which returned positive for folate deficiency. He has been started on folate supplements appropriately. Iron studies does not give any indication of iron deficiency although I do not have ferritin level. No evidence of ongoing hemolysis. Kidney dysfunction not severe enough to explain his anemia. Due to significant decline in his hemoglobin versus his recent past, he received 2 units of packed red cells. He's also had EGD/colonoscopy earlier today by Dr. Alston but which returned unremarkable. 10 year follow-up recommended. Oncology is consulted re: patient's pancytopenia. Patient seen and examined at bedside with Jennifer present. Chart review for details of ongoing care by the hospital team which is much appreciated. Dr. Murphy was kind enough to discuss patient's case with me regarding consult question. He reports feeling somewhat better today. He has a long-standing history of chronic back pain attributed to DJD and managed by PCP. His activity level is limited on account of his back pain but it is a maintenance stable baseline. 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 He's in discussion regarding right-sided knee replacement in the near future once he is medically optimal from current hospitalization. He does not have any prior diagnosis of hematologic disorder or malignancy. His been on monthly B12 injections per PCP from long-standing. 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 He was treated with antibiotics by his PCP at the [facility]. On reviewing his home medications, he is not in any notoriously myelosuppressive medication to explain his CBC abnormalities. Rest of past medical, surgical, family, social history detailed below and verified with patient today. Review of systems: 12 point review of systems performed with patient and positive findings noted in history of present illness. All other systems are negative: Physical exam: Vital Signs Temp 97.5 F L 09/22/16 11:48 Pulse 57 09/22/16 11:48 Resp 16 09/22/16 11:48 BP 142/87 09/22/16 11:48 Pulse Ox 97 09/22/16 11:48 GENERAL: Alert and oriented, comfortable appearing. Mental Status: Affect appropriate for circumstances HEENT: Sclerae anicteric. No mucositis or thrush. No other oral or pharyngeal lesions or erythema. Skin: No rashes or petechiae. No evidence of skin malignancy Lymph nodes: No cervical, supraclavicular, axillary, or inguinal adenopathy. Lungs: Clear to auscultation bilaterally. Clear to percussion bilaterally. Cardiovascular: Regular rate and rhythm. No gallops, murmurs, or rubs. Abdomen: Soft, nontender; No organomegaly or masses palpable. Extremities: No edema. No calf swelling or tenderness. No joint deformity. Neurologic: Alert, normal gait; no focal weakness or sensory abnormalities. Results: Laboratory Last Values WBC 4.1 K/mcL (4.3-11.1) L 09/22/16 04:43 RBC 3.32 M/mcL (4.19-5.50) L 09/22/16 04:43 Hgb 10.3 g/dL (12.9-16.9) L 09/22/16 04:43 Hct 31.0 % (37.5-50.1) L 09/22/16 04:43 MCV 93.4 fL (83.0-100.0) 09/22/16 04:43 MCH 31.0 pg (28.0-33.3) 09/22/16 04:43 MCHC 33.2 g/dL (31.6-35.5) 09/22/16 04:43 RDW 21.0 % (11.5-14.5) H 09/22/16 04:43 Plt Count 106 K/mcL (140-400) L 09/22/16 04:43 MPV TNP 09/22/16 04:43 Reticulocyte # 0.06 M/mcL (0.05-0.10) 09/21/16 05:01 Immature Gran % 3.0 % (0-4) 09/21/16 05:01 Seg Neutrophils % 24.0 % 09/22/16 04:43 Band Neutrophils % 4.0 % (0-4) 09/22/16 04:43 Lymphocytes % 62.0 % 09/22/16 04:43 Monocytes % 4.0 % 09/22/16 04:43 Eosinophils % 4.0 % 09/22/16 04:43 Basophils % 2.0 % 09/22/16 04:43 Neutrophils # 1.2 K/mcL (1.6-8.9) L 09/22/16 04:43 Lymphocytes # 2.5 K/mcL (0.6-4.6) 09/22/16 04:43 Monocytes # 0.2 K/mcL (0.0-1.3) 09/22/16 04:43 Eosinophils # 0.2 K/mcL (0.0-0.6) 09/22/16 04:43 Basophils # 0.1 K/mcL (0.0-0.2) 09/22/16 04:43 Nucleated RBCs/100 WBC 0.5 /100 WBC (0) H 09/22/16 04:43 Reactive Lymphocytes Present (Not Present) A 09/20/16 05:53 Platelet Estimate Slight Decrease (Normal) L 09/22/16 04:43 Clumped Platelets Few (Not Present) A 09/21/16 05:01 Large Platelets Present (Not Present) A 09/20/16 05:53 Immature Plt Fraction 29.7 % (1.1-6.1) H 09/22/16 04:43 Anisocytosis 2+ (Not Present) A 09/22/16 04:43 Macrocytosis Present (Not Present) A 09/20/16 05:53 Percent Retic 1.8 % (1.6-2.8) 09/21/16 05:01 Immature Retic Fraction 19.8 % (11.0-38.0) 09/21/16 05:01 Retic Hgb Equivalent 32.6 pg (28.61-36.33) 09/21/16 05:01 PT 13.9 Seconds (9.4-12.1) H 09/19/16 18:27 INR 1.3 09/19/16 18:27 APTT 26.7 Seconds (26.0-36.0) 09/19/16 18:27 Sodium 139 mEq/L (136-145) 09/22/16 04:43 Potassium 4.2 mEq/L (3.5-4.5) 09/22/16 04:43 Chloride 108 mEq/L (98-109) 09/22/16 04:43 Carbon Dioxide 25 mEq/L (19-29) 09/22/16 04:43 BUN 15 mg/dL (8-26) 09/22/16 04:43 Creatinine 1.17 mg/dL (0.72-1.25) 09/22/16 04:43 Est GFR ( Amer) > 60 (> 60) 09/22/16 04:43 Est GFR (Non-Af Amer) > 60 (> 60) 09/22/16 04:43 BUN/Creatinine Ratio 13 (6-26) 09/22/16 04:43 Glucose 80 mg/dL (70-99) 09/22/16 04:43 POC Glucose 80 (58-89) 09/22/16 05:30 Calculated Osmolality 288 (280-300) 09/22/16 04:43 Calcium 8.4 mg/dL (8.6-10.8) L 09/22/16 04:43 Magnesium 1.7 mg/dL (1.6-2.6) 09/19/16 18:27 Iron 132 mcg/dL (65-175) 09/19/16 18:27 % Saturation 49 % (20-55) 09/19/16 18:27 Transferrin 194 mg/dL (174-364) 09/19/16 18:27 Lactate Dehydrogenase 199 Units/L (159-327) 09/21/16 05:01 Troponin I 0.01 ng/mL (0-0.03) 09/19/16 18:27 Lipase 15 Units/L (8-78) 09/19/16 18:27 Vitamin B12 1192 pg/mL (213-816) H 09/20/16 05:53 Folate 6.1 ng/mL (7.0-31.4) L 09/20/16 05:53 TSH 1.772 mcIU/mL (0.350-4.840) 09/19/16 18:27 Urine Color Green (Yellow) A 09/20/16 04:31 Urine Clarity Clear (Clear) 09/20/16 04:31 Urine pH 6.0 pH Units (5.0-8.0) 09/20/16 04:31 Ur Specific Colby 1.007 (1.010-1.025) L 09/20/16 04:31 Urine Protein Negative mg/dL (Neg-Trace) 09/20/16 04:31 Urine Glucose (UA) Normal mg/dL (Normal) 09/20/16 04:31 Urine Ketones Negative mg/dL (Negative) 09/20/16 04:31 Urine Blood Negative (Negative) 09/20/16 04:31 Urine Nitrite Negative (Negative) 09/20/16 04:31 Urine Bilirubin Negative (Negative) 09/20/16 04:31 Urine Urobilinogen Normal mg/dL (Normal) 09/20/16 04:31 Ur Leukocyte Esterase Negative (Negative) 09/20/16 04:31 Ur Culture Indicated? NO (NO) 09/20/16 04:31 Stool Occult Blood Negative (Negative) 09/21/16 21:20 Urine Opiates Screen Positive ng/mL (Bcxclx=677) H 09/20/16 11:30 Ur Barbiturates Screen Negative ng/mL (Wibbyk=279) 09/20/16 11:30 Ur Phencyclidine Scrn Negative ng/mL (Cutoff=25) 09/20/16 11:30 Ur Amphetamines Screen Negative ng/mL (Fbcumd=7164) 09/20/16 11:30 U Benzodiazepines Scrn Positive ng/mL (Ugtkea=592) H 09/20/16 11:30 Urine Cocaine Screen Negative ng/mL (Cutoff= 300) 09/20/16 11:30 U Marijuana (THC) Screen Negative ng/mL (Cutoff = 50) 09/20/16 11:30 Blood Type A POSITIVE 09/19/16 18:27 Antibody Screen NEGATIVE 09/19/16 18:27 Crossmatch See Detail 09/19/16 18:27 Radiographic studies: I personally reviewed and interpreted patient's most recent imaging studies dated 09/19/16. I discussed the findings with the patient today. Head CT 09/19/16 19:20 IMPRESSION: No acute intracranial abnormality. D/ / Delmer Mckinney MD / Delmer Mckinney MD Interpreting Provider: Delmer Mckinney MD Impression/recommendations: Unexplained pancytopenia: I discussed with patient and his today diagnostic considerations for her pancytopenia including hematinic deficiencies, hemolysis, chronic liver disease , chronic infection, chronic kidney disease, autoimmune/rheumatoid disorders, hypothyroidism, and primary hematologic disorder. His workup confirms folate deficiency which can explain his pancytopenia. He is an appropriate folate supplementation and will continue as you're doing. If cytopenias are improved as expected with Gage supplementation, he will need further workup to look for additional contributing factors. He has a history as recommended and spotted fever which may be the basis of subsequent autoimmune cytopenias. Given his age, MDS is a consideration and bone marrow biopsy would be indicated if less than optimal improvement in his cytopenias with folate supplement. He is to continue B-12 supplementation as he is doing per PCP. Preoperative evaluation Regarding his planned knee surgery, I informed the patient I think is reasonable to hold off on his knee surgery while the complete workup for his cytopenias. He is agreeable with this. Patient is wondering about discharge. If he is medically optimal otherwise, I think I think he can be discharged. We will arrange outpatient hematology follow-up for further evaluation. We'll follow the patient peripherally with you during this hospitalization. Please call with interval questions. Thank you for your excellent ongoing care for allowing us to see [default value ] while in-house. This report was created using voice recognition software and may contain errors. It was signed but not edited to expedite communication. Corrections will be made in a separate addendum as needed. Past Med Surg Social Fam HX - Past Medical History Medical history: atrial fibrillation, DVT, hypertension Psychiatric history: anxiety, depression - Social History Smoking Status: Former smoker Smokeless Tobacco Status: No Alcohol use: none Drug use: none - Family History Mother Age at : 77 Hx Family Cancer: Yes (lung CA) Father Age at : 90 Hx Family Cardiac Disorders: Yes (CA) Sister Age at : 50 Hx Family Respiratory Disorders: Yes (asthma) Medications and Allergies Albuterol Sulfate [Albuterol Inhaler] 1 - 2 puff IH Q4-6H PRN 09/19/16 [History] Aspirin [Lo-Dose Aspirin EC] 81 mg PO DAILY 09/19/16 [History] Cyanocobalamin (B-12) [Vitamin B12] 1,000 mcg IM QMONTH 09/19/16 [History] Duloxetine HCl [Cymbalta] 60 mg PO DAILY 09/19/16 [History] Ezetimibe 10 mg PO DAILY 09/19/16 [History] Lansoprazole [Prevacid] 30 mg PO DAILY 09/19/16 [History] Lisinopril [Zestril] 5 mg PO DAILY 09/19/16 [History] Meth/Meblue/Sod Phos/Psal/Hyos [Uribel Capsule] 1 each PO DAILY 09/19/16 [ History] Naproxen [Naprosyn] 500 mg PO BID 09/19/16 [History] Oxycodone HCl [Oxycontin] 60 mg PO BID 09/19/16 [History] Oxycodone HCl/Acetaminophen [Percocet 5-325 mg Tablet] 1 each PO Q6H PRN [History] Pregabalin [Lyrica] 100 mg PO TID 09/19/16 [History] Tamsulosin [Flomax] 0.8 mg PO DAILY 09/19/16 [History] Folic Acid 1 mg PO DAILY #30 tablet 09/22/16 [Rx] Allergies ketorolac [From Toradol] Allergy (Verified 09/19/16 19:07) Hives Oncology - Exam - Constitutional Vitals: Temp Pulse Resp BP Pulse Ox 97.5 F L 57 16 142/87 97 09/22/16 11:48 09/22/16 11:48 09/22/16 11:48 09/22/16 11:48 09/22/16 11:48 Oncology - Results - Labs Labs: Short CBC 09/22/16 Range/Units 04:43 WBC 4.1 L (4.3-11.1) K/mcL Hgb 10.3 L (12.9-16.9) g/dL Hct 31.0 L (37.5-50.1) % Plt Count 106 L (140-400) K/mcL Neutrophils # 1.2 L (1.6-8.9) K/mcL BMP 09/22/16 04:43 Sodium 139 Potassium 4.2 Chloride 108 Carbon Dioxide 25 BUN 15 Creatinine 1.17 Glucose 80 Calcium 8.4 L Consult Discharge Plan - Plan Additional Instructions: F/up with PCP in 1-2 weeks F/up with Hematology in 3-4 weeks Referrals: Vasiliy Bolanos MD [Primary Care Provider] - Prescriptions: Folic Acid 1 mg PO DAILY #30 tablet
== END 2016-09-22 15:44 | disposition home or self-care (01) ==
LOC: EMEROO 18:13 → 3ANU 18:13
PROVIDERS: ADMIT Nurse Practitioner Acute Care; ATTEND Internal Medicine